=== PATIENT | female | born 1955 | race American Indian/Alaskan Native ===

== ENCOUNTER 2019-04-21 09:11 | Outpatient (CLI) | payer OTHER ==
--- NOTE | 2019-04-21 09:51 | Mammography Report ---
BONE DEXA. History: DISORDER OF BONE DENSITY AND STRUCTURE, UNSPECIFIED Procedure: 3 site bone densitometry performed on a Hologic scanner. Comparison: None Findings: The BMD of the lumbar spine is 0.815 gm/cm2 with a T-score of -2.1 and a Z-score of -1.4 . The bone mineral density (BMD) of the left femoral neck is 0.666 gm/cm2 with a T-score of -1.7 and a Z-score of -0.9. The BMD of the total left hip is 0.852 gm/cm2 with a T-score of -0.7 and a Z-score of -0.3. Impression: WHO Classification: Osteopenia with increased fracture risk based on lumbar spine measurements. WHO classification: Osteopenia with increased fracture risk based on left hip (femoral neck) measurem ents. The FRAX 10 year fracture probability for a major osteoporotic fracture is 3.7%. The FRAX 10 year fracture probability for hip fracture is 0.3%. . Note:FRAX version 3.01. Fracture probability calculated for an untreated patient. Fracture probabilit y may be lower if the patient has received treatment. RECOMMENDATION: Clinical correlation and routine screening. Definitions: BMD = Bone Mineral Density T score = BMD related to mean peak bone mass of young adult ([place] expressed an standard deviation) Z score = Age-matched BMD expressed in SD World health organization (WHO) diagnostic criteria: Normal: T score greater than -1 SD. Osteopenia: T score between - SD and -2.4 SD. Osteoporosis: T score -2.5 SD or below Note: BMD is not the only risk factor for fracture; also consider factors such as the patient's age, risk of falling, previous osteoporotic fracture, family history of osteoporotic fractures, smoking st atus and low body weight. All treatment decisions require clinical judgment and consideration of individual patient factors inc luding patient preferences, comorbidities, previous drug use and risk factors not captured in the FRA X model (e.g. Frailty, falls, vitamin D deficiency, increased bone turnover, interval significant dec line in BMD). A more detailed DEXA Bone Densitometry report is available upon request. Signer Name: Evin Liz MD Signed: 04/21/2019 9:46 AM Workstation Name: [id number]
== END 2019-04-21 09:12 | disposition home or self-care (01) ==
LOC: MAMMO 09:11
PROVIDERS: ATTEND Internal Medicine
DX: M85.9 Disorder of bone density and structure, unspecified (principal)
CPT/HCPCS: 77080